=== PATIENT | female | born 1970 | race Caucasian/White ===

== ENCOUNTER 2020-11-02 14:16 | Inpatient (IN) | payer OTHER ==
[~2020-11-02] VITALS: Ht 172.7 cm; Wt 136.1 kg
[2020-11-02 15:21] LABS: BASOPHILS # (AUTO) 0.1 (0.0-0.1); BASOPHILS % 0.5 % (0.0-1.0); EOSINOPHILS # (AUTO) 0.3 (0.0-0.4); EOSINOPHILS % 2.4 % (0.0-6.0); HEMATOCRIT 33.3 % (34.2-44.1); HEMOGLOBIN 9.4 g/dL (12.0-16.0); LYMPHOCYTES # (AUTO) 2.3 (1.0-3.2); MEAN CORPUSCULAR HGB CONC 28.2 g/dL (31-35); MEAN CORPUSCULAR VOLUME 77.8 fL (81-99); MONOCYTES # (AUTO) 0.5 (0.2-0.8); NEUTROPHILS # (AUTO) 9.6 (2.1-6.9); NEUTROPHILS % 73.9 % (38.7-80.0); PLATELET COUNT 330 x10e3/uL (140-360); RED BLOOD COUNT 4.28 x10e6/uL (3.6-5.1); RED CELL DISTRIBUTION WIDTH 18.7 % (11.7-14.4)
[2020-11-02 15:38] LABS: ALBUMIN 3.2 g/dL (3.5-5.0); ALBUMIN/GLOBULIN RATIO 0.8 (0.8-2.0); CALCIUM 8.9 mg/dL (8.4-10.2); CREATININE, SERUM 0.8 mg/dL (0.57-1.11)
[2020-11-02 15:39] LABS: % IRON SATURATION 7 % (15-50); IRON 33 ug/dL (50-170); TOTAL IRON BINDING CAPACITY 503 ug/dL (261-478); TRANSFERRIN 359 mg/dL (180-382)
[2020-11-02] MEDS ORDERED: BUPROPION XL150 MG PO (19:47)
[2020-11-02] MEDS ORDERED: SERTRALINE HCL100 MG PO (19:47)
[2020-11-02] MEDS ORDERED: METOPROLOL TART25 MG PO (19:47)
[2020-11-02 20:05] LABS: INR 0.91; PROTHROMBIN TIME 12.8 seconds (11.9-14.5)
[2020-11-02 20:06] LABS: PARTIAL THROMBOPLASTIN TIME 29.2 seconds (23.8-35.5)
[2020-11-02] MEDS ORDERED: SODIUM CHLORIDE 0.9% 50ML 50 ML ONE (20:07)
[2020-11-02] MEDS ORDERED: IOPAMIDOL 370 MG/ML 200 ML INFUS..BTL INJ ONE (20:08)
[2020-11-02] MEDS: IRON SUCROSE 100 MG in SODIUM CHLORIDE 0.9% 100 ML 100 ML IV SCH (21:10)
[2020-11-02] MEDS ORDERED: IBUPROFEN 600 MG TAB PO PRN (22:00)
[2020-11-02 23:48] VITALS: BP 133/71
[2020-11-03] VITALS (10 sets, daily range): BP systolic 127–165; BP diastolic 69–85
[2020-11-03] MEDS ORDERED: HEPARIN 25,000 UNIT 1,500 UNIT in DEXTROSE 5% 250ML 250 ML IV SCH ×3 (04:00→05:00)
[2020-11-03] MEDS ORDERED: HEPARIN SOD (PORCINE) 5,000 UNIT/ML VIAL IV ONE ×2 (04:00→05:00)
[2020-11-03 04:35] LABS: BASOPHILS # (AUTO) 0.1 (0.0-0.1); BASOPHILS % 0.5 % (0.0-1.0); EOSINOPHILS # (AUTO) 0.2 (0.0-0.4); HEMATOCRIT 32.1 % (34.2-44.1); HEMOGLOBIN 9.2 g/dL (12.0-16.0); LYMPHOCYTES # (AUTO) 2.2 (1.0-3.2); LYMPHOCYTES % 19.9 % (18.0-39.1); MEAN CORPUSCULAR HEMOGLOBIN 22.2 pg (28-32); MEAN CORPUSCULAR HGB CONC 28.7 g/dL (31-35); MEAN CORPUSCULAR VOLUME 77.5 fL (81-99); MONOCYTES # (AUTO) 0.6 (0.2-0.8); MONOCYTES % 5.5 % (4.4-11.3); NEUTROPHILS # (AUTO) 7.8 (2.1-6.9); NEUTROPHILS % 71.1 % (38.7-80.0); PLATELET COUNT 310 x10e3/uL (140-360); RED BLOOD COUNT 4.14 x10e6/uL (3.6-5.1); RED CELL DISTRIBUTION WIDTH 19.1 % (11.7-14.4)
[2020-11-03 04:47] LABS: INR 0.89; PROTHROMBIN TIME 12.6 seconds (11.9-14.5)
[2020-11-03 04:48] LABS: PARTIAL THROMBOPLASTIN TIME 30.7 seconds (23.8-35.5)
[2020-11-03] MEDS ORDERED: HEPARIN 25,000 UNIT DRIP IV ONE (04:53)
[2020-11-03 04:57] LABS: ALBUMIN 3.1 g/dL (3.5-5.0); ALBUMIN/GLOBULIN RATIO 0.8 (0.8-2.0); CALCIUM 8.8 mg/dL (8.4-10.2); CREATININE, SERUM 0.77 mg/dL (0.57-1.11)
[2020-11-03 05:22] LABS: CREATINE KINASE MB 0.5 ng/mL (0-5.0)
[2020-11-03] MEDS ORDERED: HYDROCODONE/APAP 10MG-325MG TAB PO PRN (05:45)
[2020-11-03 11:01] LABS: ANION GAP 14.5 mmol/L (8-16); CALCIUM 8.6 mg/dL (8.4-10.2); CREATININE, SERUM 0.79 mg/dL (0.57-1.11); POTASSIUM 3.5 mmol/L (3.5-5.1)
[2020-11-03] MEDS: APIXABAN 5 MG TABLET PO SCH ×2 (14:08→18:09)
[2020-11-03] MEDS: IRON SUCROSE 100 MG in SODIUM CHLORIDE 0.9% 100 ML 100 ML IV SCH (18:09)
[2020-11-03] MEDS: METOPROLOL TARTRATE 25 MG TAB PO SCH (18:09)
[2020-11-03] MEDS ORDERED: ZOLPIDEM TARTRATE 5 MG TAB PO PRN (21:00)
[2020-11-04] VITALS (10 sets, daily range): BP systolic 126–155; BP diastolic 63–80
[2020-11-04 06:25] LABS: BASOPHILS # (AUTO) 0.1 (0.0-0.1); BASOPHILS % 0.5 % (0.0-1.0); EOSINOPHILS # (AUTO) 0.3 (0.0-0.4); EOSINOPHILS % 2.2 % (0.0-6.0); HEMATOCRIT 32.1 % (34.2-44.1); HEMOGLOBIN 9.2 g/dL (12.0-16.0); LYMPHOCYTES # (AUTO) 2.4 (1.0-3.2); LYMPHOCYTES % 18.6 % (18.0-39.1); MEAN CORPUSCULAR HEMOGLOBIN 22.4 pg (28-32); MEAN CORPUSCULAR HGB CONC 28.7 g/dL (31-35); MEAN CORPUSCULAR VOLUME 78.1 fL (81-99); MONOCYTES # (AUTO) 0.8 (0.2-0.8); MONOCYTES % 6.1 % (4.4-11.3); NEUTROPHILS # (AUTO) 9.3 (2.1-6.9); NEUTROPHILS % 71.4 % (38.7-80.0); PLATELET COUNT 305 x10e3/uL (140-360); RED BLOOD COUNT 4.11 x10e6/uL (3.6-5.1); RED CELL DISTRIBUTION WIDTH 19.9 % (11.7-14.4)
[2020-11-04 06:51] LABS: ALBUMIN 3.1 g/dL (3.5-5.0); ALBUMIN/GLOBULIN RATIO 0.8 (0.8-2.0); ANION GAP 13.9 mmol/L (8-16); CALCIUM 8.7 mg/dL (8.4-10.2); CREATININE, SERUM 0.77 mg/dL (0.57-1.11); MAGNESIUM 2.1 MG/DL (1.3-2.1); POTASSIUM 3.9 mmol/L (3.5-5.1)
[2020-11-04] MEDS: BUPROPION HCL 150 MG TABCR PO SCH (09:28)
[2020-11-04] MEDS: METOPROLOL TARTRATE 25 MG TAB PO SCH ×2 (09:28→17:27)
[2020-11-04] MEDS: APIXABAN 5 MG TABLET PO SCH ×2 (09:28→17:27)
[2020-11-04] MEDS: SERTRALINE HCL 100 MG TAB PO SCH (09:28)
[2020-11-04] MEDS: IRON SUCROSE 100 MG in SODIUM CHLORIDE 0.9% 100 ML 100 ML IV SCH (15:07)
[2020-11-05] VITALS: BP 137/72
[2020-11-05 04:00] VITALS: BP 132/65
[2020-11-05 07:42] VITALS: BP 134/73
[2020-11-05 08:01] VITALS: BP 134/73
[2020-11-05] MEDS: APIXABAN 5 MG TABLET PO SCH ×2 (08:32→16:27)
[2020-11-05] MEDS: BUPROPION HCL 150 MG TABCR PO SCH (08:33)
[2020-11-05] MEDS: METOPROLOL TARTRATE 25 MG TAB PO SCH ×2 (08:33→16:27)
[2020-11-05] MEDS: SERTRALINE HCL 100 MG TAB PO SCH (08:33)
[2020-11-05 11:37] VITALS: BP 135/69
[2020-11-05] MEDS: IRON SUCROSE 100 MG in SODIUM CHLORIDE 0.9% 100 ML 100 ML IV SCH (13:13)
[2020-11-05 16:42] VITALS: BP 130/69
== END 2020-11-05 19:58 | disposition home or self-care (01) | DRG 176 ==
LOC: ER 14:30 → ERHOLD 18:25 → MED/SURG3 22:27 → OBSVTOIN 11-04 10:28
PROVIDERS: ADMIT Family Medicine; ATTEND Family Medicine
DX: I26.99 Other pulmonary embolism without acute cor pulmonale (principal); Z68.42 Body mass index [BMI] 45.0-49.9, adult; F32.9 Major depressive disorder, single episode, unspecified; E66.01 Morbid (severe) obesity due to excess calories; D50.0 Iron deficiency anemia secondary to blood loss (chronic); N92.0 Excessive and frequent menstruation with regular cycle; F41.9 Anxiety disorder, unspecified
CPT/HCPCS: 36415; 70450; 71260; 80048; 80053; 81241; 81400; 82550; 82553; 82607; 83010; 83540; 83735; 83880; 84466; 84484; 84702; 85025; 85303; 85306; 85610; 85730; 86850; 86900; 93306; 93970; 99284; G0378; J1644; J1756; Q9967

== ENCOUNTER 2021-08-01 13:48 | Emergency (ER) | payer OTHER ==
[~2021-08-01] VITALS: Ht 172.7 cm; Wt 136.1 kg
[~2021-08-01 13:48] MED LIST: BUPROPION XL150 MG PO; METOPROLOL TART25 MG PO; SERTRALINE HCL100 MG PO
[2021-08-01] MEDS ORDERED: SODIUM CHLORIDE FLUSH 10 ML SYR INJ PRN (14:30)
[2021-08-01 14:33] LABS: HEMATOCRIT 43.6 % (34.2-44.1); HEMOGLOBIN 13.5 g/dL (12.0-16.0); MEAN CORPUSCULAR HEMOGLOBIN 27.1 pg (28-32); MEAN CORPUSCULAR VOLUME 87.6 fL (81-99); PLATELET COUNT 344 x10e3/uL (140-360); RED BLOOD COUNT 4.98 x10e6/uL (3.6-5.1); RED CELL DISTRIBUTION WIDTH 15.7 % (11.7-14.4)
[2021-08-01 14:48] LABS: ALBUMIN 3.4 g/dL (3.5-5.0); ALBUMIN/GLOBULIN RATIO 0.8 (0.8-2.0); ANION GAP 10.1 mmol/L (8-16); CALCIUM 8.7 mg/dL (8.4-10.2); CREATININE, SERUM 0.75 mg/dL (0.57-1.11); POTASSIUM 4.1 mmol/L (3.5-5.1)
[2021-08-01 14:59] LABS: CLARITY,URINE CLEAR (CLEAR); COLOR,URINE YELLOW (YELLOW); KETONES,URINE NEGATIVE (NEGATIVE); LEUKOCYTE ESTERASE ,URINE NEGATIVE (NEGATIVE); NITRITE,URINE NEGATIVE (NEGATIVE); PROTEIN,URINE DIPSTICK NEGATIVE (NEGATIVE); URINE UROBILINOGEN 0.2 mg/dL (0.2 - 1)
[2021-08-01 15:12] LABS: BACTERIA,URINE MODERATE /HPF; EPITHELIAL CELLS,URINE MODERATE /LPF
[2021-08-01 15:14] LABS: EOSINOPHILS % (MANUAL) 1 % (0-7); LYMPHOCYTES % (MANUAL) 27 % (19-48); MONOCYTES % (MANUAL) 6 % (3.4-9.0); NEUTROPHILS % (MANUAL) 66 % (40-74); PLATELET ESTIMATE ADEQUATE; PLATELET MORPHOLOGY COMMENT NORMAL; RBC MORPHOLOGY COMMENT NORMAL
[2021-08-01] MEDS ORDERED: HYDROCHLOROTH12.5 MG PO (16:37)
== END 2021-08-01 16:45 | disposition home or self-care (01) ==
LOC: ER 14:00
DX: R42 Dizziness and giddiness (principal); I10 Essential (primary) hypertension; R60.9 Edema, unspecified; D64.9 Anemia, unspecified; F32.A Depression, unspecified; R94.31 Abnormal electrocardiogram [ECG] [EKG]; Z86.73 Personal history of transient ischemic attack (TIA), and cerebral infarction without residual deficits; Z86.711 Personal history of pulmonary embolism
CPT/HCPCS: 36415; 70450; 71046; 80053; 81001; 83880; 84484; 85007; 85027; 85379; 93005; 99284

== ENCOUNTER 2024-05-05 23:06 | Emergency (ER) | payer OTHER ==
[~2024-05-05] VITALS: Ht 162.6 cm; Wt 124.7 kg
[~2024-05-05 23:06] MED LIST changes: +HYDROCHLOROTH12.5 MG PO
[2024-05-05 23:10] VITALS: PULSE 77; RESP 18; TEMP 97.9
[2024-05-05] MEDS: TRAMADOL HCL 50 MG TAB PO STA (23:43)
[2024-05-05] MEDS ORDERED: ULTRAM 50MG50 MG PO (23:44)
[2024-05-06 00:34] VITALS: BP 131/89; PULSE 82; RESP 20; TEMP 98.1; O2SAT 98
== END 2024-05-06 00:20 | disposition home or self-care (01) ==
LOC: ER 23:10
DX: S92.354A Nondisplaced fracture of fifth metatarsal bone, right foot, initial encounter for closed fracture (principal); M25.571 Pain in right ankle and joints of right foot; X50.1XXA Overexertion from prolonged static or awkward postures, initial encounter; Y93.01 Activity, walking, marching and hiking; Y92.89 Other specified places as the place of occurrence of the external cause; I10 Essential (primary) hypertension; F32.A Depression, unspecified; Z86.73 Personal history of transient ischemic attack (TIA), and cerebral infarction without residual deficits; Z86.718 Personal history of other venous thrombosis and embolism
CPT/HCPCS: 99284

== ENCOUNTER 2024-05-24 16:39 | Emergency (ER) | payer OTHER ==
[~2024-05-24] VITALS: Ht 162.6 cm; Wt 124.7 kg
[~2024-05-24 16:39] MED LIST changes: +ULTRAM 50MG50 MG PO
[2024-05-24 17:05] VITALS: TEMP 98.5
[2024-05-24 17:53] LABS: BASOPHILS % 0.4 % (0.0-1.0); EOSINOPHILS # (AUTO) 0.1 (0.0-0.4); EOSINOPHILS % 1.1 % (0.0-6.0); HEMATOCRIT 40.2 % (34.2-44.1); HEMOGLOBIN 11.5 g/dL (12.0-16.0); LYMPHOCYTES # (AUTO) 1.8 (1.0-3.2); LYMPHOCYTES % 19.4 % (18.0-39.1); MEAN CORPUSCULAR HEMOGLOBIN 26.1 pg (28-32); MEAN CORPUSCULAR HGB CONC 28.6 g/dL (31-35); MEAN CORPUSCULAR VOLUME 91.2 fL (81-99); MONOCYTES # (AUTO) 0.7 (0.2-0.8); MONOCYTES % 7.1 % (4.4-11.3); NEUTROPHILS # (AUTO) 6.8 (2.1-6.9); NEUTROPHILS % 71.8 % (38.7-80.0); PLATELET COUNT 344 x10e3/uL (140-360); RED BLOOD COUNT 4.41 x10e6/uL (3.6-5.1); RED CELL DISTRIBUTION WIDTH 14.7 % (11.7-14.4); WHITE BLOOD COUNT 9.45 x10e3/uL (4.8-10.8)
[2024-05-24 17:58] LABS: ALBUMIN 3.4 g/dL (3.5-5.0); ALBUMIN/GLOBULIN RATIO 0.8 (0.8-2.0); ANION GAP 15.4 mmol/L (8-16); BILIRUBIN,TOTAL 0.3 mg/dL (0.2-1.2); CALCIUM 9.7 mg/dL (8.4-10.2); CREATININE, SERUM 0.84 mg/dL (0.57-1.11); POTASSIUM 4.4 mmol/L (3.5-5.1); TOTAL PROTEIN 7.5 g/dL (6.5-8.1)
[2024-05-24] MEDS: ONDANSETRON HCL INJ 2MG/ML 2ML 2 MG/ML VIAL IV STA (18:26)
[2024-05-24] MEDS: Morphine 4mg INJECTION 4 MG/ML INJ IV STA (18:28)
[2024-05-24 20:00] VITALS: PULSE 88; RESP 19
[2024-05-24] MEDS ORDERED: AMOX TR-K CLV1 EAC2 PO (20:15)
[2024-05-24] MEDS ORDERED: ONDANSETRON ODT4 MG PO (20:15)
[2024-05-24 21:07] VITALS: BP 133/58; PULSE 82; RESP 25; TEMP 98.2; O2SAT 98
== END 2024-05-24 20:58 | disposition home or self-care (01) ==
LOC: ER 18:25
DX: L03.116 Cellulitis of left lower limb (principal); I10 Essential (primary) hypertension; F32.A Depression, unspecified; Z86.73 Personal history of transient ischemic attack (TIA), and cerebral infarction without residual deficits; Z86.711 Personal history of pulmonary embolism
CPT/HCPCS: 36415; 80053; 85025; 93970; 99284; J2270; J2405; J2543

== ENCOUNTER 2024-05-31 21:47 | Inpatient (IN) | payer OTHER ==
[~2024-05-31] VITALS: Ht 162.6 cm; Wt 124.7 kg
[~2024-05-31 21:47] MED LIST changes: +AMOX TR-K CLV1 EAC2 PO; +ONDANSETRON ODT4 MG PO
[2024-05-31 21:54] VITALS: TEMP 97.9
[2024-05-31 22:26] LABS: BASOPHILS # (AUTO) 0.1 (0.0-0.1); BASOPHILS % 0.7 % (0.0-1.0); EOSINOPHILS # (AUTO) 0.3 (0.0-0.4); EOSINOPHILS % 2.8 % (0.0-6.0); HEMATOCRIT 38.3 % (34.2-44.1); HEMOGLOBIN 11.8 g/dL (12.0-16.0); LYMPHOCYTES % 22.1 % (18.0-39.1); MEAN CORPUSCULAR HGB CONC 30.8 g/dL (31-35); MEAN CORPUSCULAR VOLUME 84.5 fL (81-99); MONOCYTES # (AUTO) 0.8 (0.2-0.8); MONOCYTES % 8.4 % (4.4-11.3); NEUTROPHILS % 65.7 % (38.7-80.0); PLATELET COUNT 423 x10e3/uL (140-360); RED BLOOD COUNT 4.53 x10e6/uL (3.6-5.1); RED CELL DISTRIBUTION WIDTH 14.9 % (11.7-14.4); WHITE BLOOD COUNT 9.18 x10e3/uL (4.8-10.8)
[2024-05-31 22:47] LABS: ALBUMIN 3.6 g/dL (3.5-5.0); ALBUMIN/GLOBULIN RATIO 0.9 (0.8-2.0); ANION GAP 15.6 mmol/L (8-16); BILIRUBIN,TOTAL 0.2 mg/dL (0.2-1.2); CALCIUM 9.9 mg/dL (8.4-10.2); CREATININE, SERUM 1.09 mg/dL (0.57-1.11); POTASSIUM 4.6 mmol/L (3.5-5.1); TOTAL PROTEIN 7.8 g/dL (6.5-8.1)
[2024-05-31] MEDS: Vancomycin IV 1.25 GM in SODIUM CHLORIDE 0.9% 250ML 250 ML IV SCH (22:53)
[2024-05-31 23:30] VITALS: PULSE 73; RESP 16
[2024-05-31] MEDS ORDERED: ONDANSETRON HCL INJ 2MG/ML 2ML 2 MG/ML VIAL IV PRN (23:45)
[2024-05-31] MEDS ORDERED: SODIUM CHLORIDE FLUSH 10 ML SYR INJ PRN (23:45)
[2024-06-01] VITALS (13 sets, daily range): BP systolic 108–138; BP diastolic 69–77; PULSE 67–85; RESP 18–20; TEMP 97.5–98; O2SAT 97–100
[2024-06-01 06:33] LABS: BASOPHILS % 0.6 % (0.0-1.0); EOSINOPHILS # (AUTO) 0.3 (0.0-0.4); EOSINOPHILS % 4.2 % (0.0-6.0); HEMATOCRIT 36.5 % (34.2-44.1); LYMPHOCYTES # (AUTO) 1.8 (1.0-3.2); LYMPHOCYTES % 24.6 % (18.0-39.1); MEAN CORPUSCULAR HEMOGLOBIN 26.1 pg (28-32); MEAN CORPUSCULAR HGB CONC 30.1 g/dL (31-35); MEAN CORPUSCULAR VOLUME 86.5 fL (81-99); MONOCYTES # (AUTO) 0.8 (0.2-0.8); NEUTROPHILS # (AUTO) 4.2 (2.1-6.9); NEUTROPHILS % 59.2 % (38.7-80.0); PLATELET COUNT 353 x10e3/uL (140-360); RED BLOOD COUNT 4.22 x10e6/uL (3.6-5.1); RED CELL DISTRIBUTION WIDTH 15.1 % (11.7-14.4)
[2024-06-01 07:06] LABS: ALBUMIN 3.1 g/dL (3.5-5.0); ALBUMIN/GLOBULIN RATIO 0.9 (0.8-2.0); ANION GAP 15.2 mmol/L (8-16); BILIRUBIN,TOTAL 0.3 mg/dL (0.2-1.2); CALCIUM 9.2 mg/dL (8.4-10.2); CREATININE, SERUM 0.97 mg/dL (0.57-1.11); POTASSIUM 4.2 mmol/L (3.5-5.1); TOTAL PROTEIN 6.7 g/dL (6.5-8.1)
[2024-06-01] MEDS ORDERED: HYDRALAZINE HCL 20 MG/ML VIAL IV PRN (09:00)
[2024-06-01] MEDS ORDERED: DOCUSATE SODIUM 100 MG CAP PO PRN (09:00)
[2024-06-01] MEDS ORDERED: POTASSIUM CHLORIDE 20 MEQ TAB CR PO PRN (09:00)
[2024-06-01] MEDS ORDERED: ALBUTEROL/IPRATROPIUM 3 ML NEB NEB PRN (09:00)
[2024-06-01] MEDS ORDERED: DEXTROSE 50% SYRINGE 50 ML IV PRN (09:00)
[2024-06-01] MEDS ORDERED: SIMETHICONE 80 MG CHEW PO PRN (09:00)
[2024-06-01] MEDS ORDERED: BENZONATATE 100 MG CAP PO PRN (09:00)
[2024-06-01] MEDS ORDERED: MELATONIN 5 MG TABLET PO PRN (09:00)
[2024-06-01] MEDS: BUPROPION HCL 150 MG TABCR PO SCH (09:53)
[2024-06-01] MEDS: METOPROLOL TARTRATE 25 MG TAB PO SCH (09:53)
[2024-06-01] MEDS: SERTRALINE HCL 100 MG TAB PO SCH (10:01)
[2024-06-01] MEDS: VANCOMYCIN 1.25GM/250 ML (PEG) 250 ML IV SCH (11:42)
[2024-06-01] MEDS ORDERED: ENOXAPARIN SOD INJ 40 MG/0.4 ML SYR SC SCH (17:00)
[2024-06-01] MEDS: RIVAROXABAN 20 MG TABLET PO SCH (17:33)
[2024-06-02] VITALS (9 sets, daily range): BP systolic 114–136; BP diastolic 54–70; PULSE 65–77; RESP 18–20; TEMP 97.5–98; O2SAT 98–100
[2024-06-02 06:01] LABS: BASOPHILS % 0.5 % (0.0-1.0); EOSINOPHILS # (AUTO) 0.3 (0.0-0.4); EOSINOPHILS % 4.2 % (0.0-6.0); HEMATOCRIT 37.8 % (34.2-44.1); HEMOGLOBIN 11.5 g/dL (12.0-16.0); LYMPHOCYTES % 30.3 % (18.0-39.1); MEAN CORPUSCULAR HEMOGLOBIN 26.5 pg (28-32); MEAN CORPUSCULAR HGB CONC 30.4 g/dL (31-35); MEAN CORPUSCULAR VOLUME 87.1 fL (81-99); MONOCYTES # (AUTO) 0.5 (0.2-0.8); MONOCYTES % 7.4 % (4.4-11.3); NEUTROPHILS # (AUTO) 3.7 (2.1-6.9); NEUTROPHILS % 57.3 % (38.7-80.0); PLATELET COUNT 374 x10e3/uL (140-360); RED BLOOD COUNT 4.34 x10e6/uL (3.6-5.1); WHITE BLOOD COUNT 6.46 x10e3/uL (4.8-10.8)
[2024-06-02 06:40] LABS: ANION GAP 13.2 mmol/L (8-16); CALCIUM 8.9 mg/dL (8.4-10.2); CREATININE, SERUM 0.97 mg/dL (0.57-1.11); MAGNESIUM 2.2 MG/DL (1.3-2.1); POTASSIUM 4.2 mmol/L (3.5-5.1)
[2024-06-02 06:51] LABS: THYROID STIMULATING HORMONE 2.278 uIU/mL (0.350-4.940)
[2024-06-02] MEDS: PANTOPRAZOLE SOD 40 MG TABEC PO SCH (08:01)
[2024-06-02] MEDS: DIPHENHYDRAMINE HCL 25 MG CAP PO PRN (22:23)
[2024-06-02] MEDS: HYDROCODONE/APAP 5MG-325MG TAB PO PRN (22:23)
[2024-06-03] VITALS (11 sets, daily range): BP systolic 118–142; BP diastolic 64–78; PULSE 57–78; RESP 18–20; TEMP 96.6–97.7; O2SAT 97–100
[2024-06-03] MEDS: Vancomycin IV 1 GM in SODIUM CHLORIDE 0.9% 250ML 250 ML IV SCH (12:30)
[2024-06-03] MEDS ORDERED: IOPAMIDOL 370 MG/ML 100 ML INFUS..BTL INJ ONE (17:36)
[2024-06-04] VITALS (8 sets, daily range): BP systolic 115–148; BP diastolic 64–78; PULSE 60–85; RESP 16–20; TEMP 97.5–98; O2SAT 97–100
[2024-06-05] VITALS (8 sets, daily range): BP systolic 114–145; BP diastolic 63–76; PULSE 64–85; RESP 17–21; TEMP 97.6–98.4; O2SAT 97–99
[2024-06-05 06:24] LABS: BASOPHILS % 0.4 % (0.0-1.0); EOSINOPHILS # (AUTO) 0.3 (0.0-0.4); EOSINOPHILS % 3.8 % (0.0-6.0); HEMATOCRIT 36.4 % (34.2-44.1); HEMOGLOBIN 11.4 g/dL (12.0-16.0); LYMPHOCYTES # (AUTO) 2.1 (1.0-3.2); LYMPHOCYTES % 27.1 % (18.0-39.1); MEAN CORPUSCULAR HEMOGLOBIN 26.3 pg (28-32); MEAN CORPUSCULAR HGB CONC 31.3 g/dL (31-35); MEAN CORPUSCULAR VOLUME 84.1 fL (81-99); MONOCYTES # (AUTO) 0.4 (0.2-0.8); MONOCYTES % 5.3 % (4.4-11.3); NEUTROPHILS % 62.9 % (38.7-80.0); PLATELET COUNT 332 x10e3/uL (140-360); RED BLOOD COUNT 4.33 x10e6/uL (3.6-5.1); RED CELL DISTRIBUTION WIDTH 14.9 % (11.7-14.4); WHITE BLOOD COUNT 7.89 x10e3/uL (4.8-10.8)
[2024-06-05 06:42] LABS: ANION GAP 12.8 mmol/L (8-16); CALCIUM 8.8 mg/dL (8.4-10.2); CREATININE, SERUM 0.81 mg/dL (0.57-1.11); POTASSIUM 3.8 mmol/L (3.5-5.1)
[2024-06-05] MEDS: LIDOCAINE 4% PATCH TP PRN (08:33)
[2024-06-06] VITALS (11 sets, daily range): BP systolic 122–145; BP diastolic 68–81; PULSE 69–80; RESP 17–18; TEMP 97–97.9; O2SAT 96–100
[2024-06-06] MEDS ORDERED: ACETAMINOPHEN 1000 MG/100 ML 100 ML IV ONE (12:31)
[2024-06-06] MEDS ORDERED: PROPOFOL IV EMULSION 10 MG/ML 20 ML VIAL ONE (12:31)
[2024-06-06] MEDS ORDERED: SEVOFLURANE INHAL SOLN 250 ML PEN BTL ONE (12:31)
[2024-06-06] MEDS ORDERED: MIDAZOLAM HCL 2 MG/2 ML VIAL ONE (12:31)
[2024-06-06] MEDS ORDERED: LIDOCAINE HCL 2% LOCAL INJ 5 ML SDV VIAL INJ ONE (12:31)
[2024-06-06] MEDS ORDERED: FENTANYL CITRATE/PF 100MCG/2 ML INJ ONE (12:31)
[2024-06-06] MEDS ORDERED: FAMOTIDINE 20 MG/2 ML VIAL IV ONE (12:34)
[2024-06-06] MEDS ORDERED: ONDANSETRON HCL INJ 2MG/ML 2ML 2 MG/ML VIAL ONE (13:28)
[2024-06-06] MEDS ORDERED: DEXAMETHASONE SOD PHOS INJ 4 MG/ML SDV ONE (13:28)
[2024-06-06] MEDS ORDERED: KETOROLAC TROMETHAMINE 30 MG/ML VIAL ONE (14:00)
[2024-06-06] MEDS: FENTANYL CITRATE/PF 100MCG/2 ML INJ ONE (14:18)
[2024-06-06] MEDS: HYDROCODONE/APAP 7.5MG-325MG 1 EA TAB PO PRN (14:33)
[2024-06-06] MEDS: Vancomycin IV 1 GM in SODIUM CHLORIDE 0.9% 250ML 250 ML IV SCH (17:22)
[2024-06-07] VITALS (7 sets, daily range): BP systolic 117–141; BP diastolic 64–72; PULSE 67–75; RESP 18; TEMP 97.5–97.7; O2SAT 96–100
[2024-06-07] MEDS: ACETAMINOPHEN 325 MG TAB PO PRN (03:19)
[2024-06-07 13:20] LABS: HEMATOCRIT 36.2 % (34.2-44.1); HEMOGLOBIN 10.9 g/dL (12.0-16.0)
[2024-06-07] MEDS ORDERED: ZYVOX600 MG PO (13:22)
[2024-06-07] MEDS ORDERED: XARELTO20 MG PO (13:22)
== END 2024-06-07 15:37 | disposition home or self-care (01) | DRG 603 ==
LOC: ER 21:53 → ERHOLD 23:44 → MED/SURG3 23:53
PROVIDERS: ADMIT Internal Medicine; ATTEND Internal Medicine
PROC: 02HV33Z Insertion of Infusion Device into Superior Vena Cava, Percutaneous Approach (ICD-10-PCS; 2024-06-02)
PROC: 0J9P00Z Drainage of Left Lower Leg Subcutaneous Tissue and Fascia with Drainage Device, Open Approach (ICD-10-PCS; principal; 2024-06-06 13:21)
DX: L02.416 Cutaneous abscess of left lower limb (principal); E66.01 Morbid (severe) obesity due to excess calories; Z68.42 Body mass index [BMI] 45.0-49.9, adult; L03.116 Cellulitis of left lower limb; S80.12XA Contusion of left lower leg, initial encounter; I10 Essential (primary) hypertension; F32.A Depression, unspecified; F41.9 Anxiety disorder, unspecified; W50.1XXA Accidental kick by another person, initial encounter; Z79.01 Long term (current) use of anticoagulants; Z86.73 Personal history of transient ischemic attack (TIA), and cerebral infarction without residual deficits; Z86.711 Personal history of pulmonary embolism; Z86.718 Personal history of other venous thrombosis and embolism
CPT/HCPCS: 36415; 36569; 71045; 80048; 80053; 80202; 83036; 83735; 84443; 85014; 85018; 85025; 87040; 87071; 87075; 87205; 93970; 94799; 99252; 99284; J1100; J1885; J2003; J2250; J2405; J2543; J7050; Q9967